=== PATIENT | male | born 1970 | race Caucasian/White ===

== ENCOUNTER 2019-07-28 07:58 | Day surgery (SDC) | payer OTHER, SELFPAY ==
[2019-07-27 15:52] VITALS: BMI 25.2
--- NOTE | 2019-07-28 07:03 | W.PM.OPSUD ---
Surgery/Procedure H&P Update DATE OF PROCEDURE: July 28, 2019 DATE H&P PERFORMED: 07/25/19 H&P UPDATE INFORMATION: No changes to prior documentation PLANNED PROCEDURE: Operation Date: 07/28/19 09:15 Proposed Procedures p Inguinal Hernia Repair w/ Mesh(Not Applicable) - Jordan Guerra MD
[2019-07-28 08:09] VITALS: BP 138/93; PULSE 92; RESP 18; TEMP 37; O2SAT 99
[2019-07-28] MEDS: sodium chloride 0.9% 1,000 ML 30 ML IV (08:28)
--- NOTE | 2019-07-28 08:35 | P.ANESASSM_ITS ---
Pre-Anesthetic Assessment Pre-Anesthetic Assessment: Height/Weight: Height 1.73 m Weight 75.296 kg Temp Pulse Resp BP Pulse Ox 98.6 F 92 18 138/93 99 07/28/19 08:09 07/28/19 08:09 07/28/19 08:09 07/28/19 08:09 07/28/19 08:09 Preop Diagnosis: inguinal hernia (L) Proposed Procedure: Operation Date: 07/28/19 09:15 Proposed Procedures p Inguinal Hernia Repair w/ Mesh(Not Applicable) - Jordan Guerra MD Familial anesthetic complications: None Was Beta Josias taken within 24 hours: N/A Last intake: Intake Last Liquid Date 07/27/19 Last Liquid Time 20:00 Last Solid Date 07/27/19 Last Solid Time 20:00 Social: Social History: No alcohol and No tobacco Airway: Cervical ROM: WNL MP: 2 Additional comments: missing Pulmonary: Pulmonary: None reported CV/HEM: CV/HEM: None reported : : None reported Hepatic: Hepatic: None reported GI: GI: None reported Metabolic: Metabolic: None reported Musc/skel: Musc/skel: None reported Neuropsych: Neuropsych: None reported Anesthetic Plan: ASA status: 1 Anesthesia: General Risk of > 500 ml blood loss (7ml/kg in children): No Meds/Allergies Current Medications: Current Medications Generic Name Dose Route Start Last Admin Trade Name Freq PRN Reason Stop Dose Admin Sodium Chloride 1,000 mls @ 30 ml s/hr 07/28/19 06:45 07/28/19 08:28 Sodium Chloride 0.9% IV 07/29/19 06:44 30 mls/hr .Q24H VIVIAN Administration PFSH Anesthesia PFSH: Social History (Updated 07/27/19 @ 15:14 by [employer]) Smoking and tobacco status: former smoker Quit status (tobacco): has quit using tobacco Alcohol intake: current Alcohol intake frequency: few times a week Substance/Drug Use: never Data Anesthesia Cardiac Studies: No Data to Display
--- NOTE | 2019-07-28 09:31 | P.OP_ITS ---
Operative Report Date of procedure: July 28, 2019 Pre-op Diagnosis: inguinal hernia (L) Post-op Diagnosis: Left indirect inguinal hernia. Procedure Done: Repair of left inguinal hernia with mesh. Pathology: none sent Surgeon: Jordan Guerra Anesthesia: MAC Estimated blood loss (mL): 5 Complications: None. Condition: stable Disposition: same day Procedure: The patient was brought to the operating room and was placed in a supine position on the operating room table. A monitored anesthetic was induced. The left inguinal region was prepped and draped in a sterile fashion. A combination of 1% lidocaine and 0.5% bupivacaine with 1-200,000 parts epinephrine was used for local anesthesia throughout the procedure. A transverse incision was carried out above the level of the pubic tubercle. Cautery was used to divide the subcutaneous tissue down to the external oblique aponeurosis which was incised in parallel with its fibers over the inguinal canal. The spermatic cord was looped with a Elisabeth drain. An indirect hernia was found at the internal ring. The hernia sac and contents were carefully freed from the cord structures down to the internal ring. Some preperitoneal fat that was coming through the internal ring was excised. The hernia sac was somewhat large and so this was stick tied at the base with a suture of 3-0 Vicryl and the excess sac was excised. A large mesh plug was used to hold the remaining hernia sac in a reduced position and was held in place with a suture of 0 Prolene that was used to connect the conjoined area medially to the reflect ing edge of Poupart's ligament laterally. The onlay patch was anchored at the tubercle with a suture of 0 Prolene and was laid along the inguinal canal floor, allowing the cord structures to pass through the precut hole in the mesh. The two wings of mesh were sewn to each other above the level of the internal ring with a suture of 0 Prolene. The external oblique aponeurosis was closed over the top of the cord using a running suture of 3-0 Vicryl. The wound was irrigated with saline. The subcutaneous tissue was brought together with a simple suture of 3-0 Vicryl and the skin was approximated using a running subcuticular suture of 3-0 Vicryl. Benzoin and Steri-Strips were placed over the incision and a sterile bandage followed. The patient was taken to the recovery area in stable condition postoperatively.
[2019-07-28 09:39] VITALS: BP 113/74; PULSE 81; RESP 16; TEMP 36.9; O2SAT 96
[2019-07-28] MEDS: HYDROcodone-acetaminophen 5-325 mg Tablet 1 TAB PO (09:57)
[2019-07-28 10:08] VITALS: BP 132/79; PULSE 57; RESP 18; O2SAT 99
== END 2019-07-28 10:25 | disposition home or self-care (01) ==
PROVIDERS: PCP Family Medicine; Visit Provider Surgery
PROC: (CPT 49505; principal; 2019-07-28 09:15)
DX: K40.90 Unilateral inguinal hernia, without obstruction or gangrene, not specified as recurrent (principal); Z87.891 Personal history of nicotine dependence
CPT/HCPCS: 49505; 12345; C1781; J0690; J2001; J2704; J3010; J3490; J7030